=== PATIENT | male | born 1940 | race Caucasian/White ===

== ENCOUNTER → 2017-05-29 | Outpatient (CLI) | payer OTHER ==
[~2017-05-29] MED LIST: ALBUTEROL SULF8.5 GM IH; ASPIR 8181 M1 PO; ASPIRIN81 M1; LEVAQUIN750 MG PO
[2017-05-29 07:58] LABS: INTER. NORMALIZED RATIO 1.1; PROTHROMBIN TIME 12.7 SEC (10.2-12.9)
[2017-05-29 08:01] LABS: PTT 28.7 SEC (25-37)
== END | disposition home or self-care (01) ==
LOC: OPR 07:20 → EDSTATUS 08:00
PROVIDERS: Urology
DX: R59.0 Localized enlarged lymph nodes (principal); R19.00 Intra-abdominal and pelvic swelling, mass and lump, unspecified site; E07.9 Disorder of thyroid, unspecified; N20.1 Calculus of ureter; Z79.82 Long term (current) use of aspirin
CPT/HCPCS: 77012; 85610; 85730; 88305; J3010

== ENCOUNTER → 2017-07-01 | Outpatient (CLI) | payer OTHER ==
[2017-07-03 13:44] LABS: Flow Number of Markers 22 (()); Flow Spec Viability 86 % (())
== END | disposition home or self-care (01) ==
LOC: OPR 07:46 → EDSTATUS 08:00 → OPR 08:00
PROVIDERS: Internal Medicine Medical Oncology
DX: I88.9 Nonspecific lymphadenitis, unspecified (principal); R19.00 Intra-abdominal and pelvic swelling, mass and lump, unspecified site; E04.9 Nontoxic goiter, unspecified; R31.9 Hematuria, unspecified; D64.9 Anemia, unspecified; D56.3 Thalassemia minor; E66.9 Obesity, unspecified; Z68.33 Body mass index [BMI] 33.0-33.9, adult; Z79.82 Long term (current) use of aspirin
CPT/HCPCS: 77012; 88305; J3010

== ENCOUNTER → 2017-07-24 | Outpatient (CLI) | payer OTHER | END | disposition home or self-care (01) | LOC: RES 10:52 | DX: J98.4 Other disorders of lung (principal) | CPT/HCPCS: 94060; 94726; 94729 ==

== ENCOUNTER 2017-07-28 07:16 | Day surgery (SDC) | payer OTHER ==
[~2017-07-28] VITALS: Ht 181.6 cm; Wt 108.0 kg
== END 2017-07-28 10:38 | disposition home or self-care (01) ==
LOC: CATH 07:16
DX: I87.8 Other specified disorders of veins (principal); C81.90 Hodgkin lymphoma, unspecified, unspecified site
CPT/HCPCS: C1751; C1894; J0690; J1644; J2250; J3010; S0020

== ENCOUNTER → 2018-01-18 | Outpatient (CLI) | payer OTHER ==
[~2018-01-18] MED LIST changes: +ONDANSETRON ODT8 MG PO
== END | disposition home or self-care (01) ==
LOC: RES 09:44
DX: R94.2 Abnormal results of pulmonary function studies (principal)
CPT/HCPCS: 94060; 94726; 94729

== ENCOUNTER → 2018-01-22 | Outpatient (CLI) | payer OTHER | END | disposition home or self-care (01) | LOC: AMB 09:03 | PROC: 0JPT0WZ Removal of Totally Implantable Vascular Access Device from Trunk Subcutaneous Tissue and Fascia, Open Approach (ICD-10-PCS; principal; 2018-01-22) | DX: Z45.2 Encounter for adjustment and management of vascular access device (principal); I87.8 Other specified disorders of veins; Z85.9 Personal history of malignant neoplasm, unspecified ==